=== PATIENT | female | born 1965 | race African-American/Black ===

== ENCOUNTER 2016-07-04 11:03 | Emergency (ER) | payer MEDICAID ==
[~2016-07-04] VITALS: Ht 162.6 cm; Wt 70.0 kg
[~2016-07-04 11:03] MED LIST: ATENOLOL PO; BENA40TA3 PO; BRIM.2 BOTHEYE; DILT120C54 PO; HYDR25TA PO; OMEP20TA80 PO; PRED5DRO7 BOTHEYE; metformin PO
[2016-07-04] MEDS ORDERED: SODIUM CHLORIDE 0.9% 1,000 ML IV ONE (11:37)
[2016-07-04] MEDS ORDERED: ONDANSETRON HCL 4MG/2ML VIAL IV STA (11:37)
[2016-07-04] MEDS ORDERED: MECLIZINE 25MG TABLET PO ONE (11:45)
[2016-07-04 11:54] LABS: BASOPHILS % 0.4 % (0.0-2.0); DIFFERENTIAL COMMENT 0; HEMOGLOBIN. 12.3 g/dL (12.0-16.0); LYMPHOCYTES % 16.6 % (20.0-50.0); MEAN CORPUSCULAR HEMOGLOBIN 26.5 pg (28.0-32.0); MEAN CORPUSCULAR HGB CONC 34.3 g/dL (31.0-37.0); MEAN CORPUSCULAR VOLUME 77.4 fL (81.0-99.0); MEAN PLATELET VOLUME 8.1 fl (7.4-10.4); MONOCYTES % 6.7 % (2.0-8.0); NEUTROPHILS % 75.3 % (40.0-76.0); PLATELET 297 x1000/uL (130-400); RED BLOOD CELL COUNT 4.65 mill/uL (4.2-5.4); RED CELL DISTRIBUTION WIDTH 15.2 % (11.6-14.6); WHITE BLOOD COUNT 7.5 x1000/uL (4.5-11.0)
[2016-07-04 12:02] LABS: INR 1.1; PROTHROMBIN TIME 11.3 sec
[2016-07-04 12:14] LABS: ALANINE AMINOTRANSFERASE 15 IU/L (13-61); ALBUMIN 3.6 g/dL (3.4-5.0); ANION GAP 11; CALCIUM 9.3 mg/dL (8.5-10.1); CARBON DIOXIDE 30 mEq/L (21-32); CHLORIDE 106 mEq/L (98-107); INDEX HEMOLYSI 1 (1-3); INDEX ICTERIC 1 (1-4); INDEX LIPEMIC 1 (1-3); UREA NITROGEN BLOOD 8 mg/dL (7-21); eGFR > 60 mL/min (>60)
[2016-07-04 12:54] LABS: GLUCOSE URINE NEGATIVE (NEGATIVE); KETONES URINE NEGATIVE (NEGATIVE); LEUKOCYTE ESTERASE URINE 2+ (NEGATIVE); NITRITE URINE NEGATIVE (NEGATIVE); OCCULT BLOOD URINE NEGATIVE (NEGATIVE); PH URINE 7.5 (4.5-8.0); PROTEIN URINE NEGATIVE (NEGATIVE); UROBILINOGEN URINE 0.2 E.U./dL (0.2-1.0)
[2016-07-04 13:00] LABS: CLARITY URINE CLEAR (CLEAR); COLOR URINE YELLOW (YELLOW)
[2016-07-04 13:09] LABS: BACTERIA URINE NONE SEEN; RBC URINE 0-2 /hpf (0-2); SQUAMOUS EPITHELIAL CELL URINE FEW /lpf (RARE/1+)
[2016-07-04 16:44] VITALS: BP 107/74
== END 2016-07-04 17:02 | disposition home or self-care (01) ==
LOC: ER 12:35
DX: R42 Dizziness and giddiness (principal); N30.00 Acute cystitis without hematuria; E11.65 Type 2 diabetes mellitus with hyperglycemia; Z79.84 Long term (current) use of oral hypoglycemic drugs
CPT/HCPCS: 36415; 80053; 81001; 85025; 85610; 93005; 96361; 96374; 99285; J2405; J7030; J8597

== ENCOUNTER 2017-05-14 08:32 | Emergency (ER) | payer MEDICAID ==
[~2017-05-14] VITALS: Ht 167.6 cm; Wt 73.0 kg
[~2017-05-14 08:32] MED LIST changes: +OMEP20TA2 PO; -OMEP20TA80 PO
[2017-05-14 10:02] LABS: BASOPHILS % 1.1 % (0.0-2.0); EOSINOPHILS % 1.2 % (0.0-5.0); LYMPHOCYTES % 31.2 % (20.0-50.0); MEAN CORPUSCULAR HEMOGLOBIN 26.6 pg (28.0-32.0); MEAN CORPUSCULAR VOLUME 77.3 fL (81.0-99.0); MEAN PLATELET VOLUME 8.6 fl (7.4-10.4); MONOCYTES % 8.7 % (2.0-8.0); NEUTROPHILS % 57.8 % (40.0-76.0); PLATELET 324 x1000/uL (130-400); RED BLOOD CELL COUNT 4.53 mill/uL (4.2-5.4)
[2017-05-14 10:07] LABS: PROTHROMBIN TIME 10.5 sec (9.4-11.6)
[2017-05-14 11:19] LABS: CHLORIDE 103 mEq/L (98-107)
[2017-05-14 11:30] VITALS: BP 126/80
== END 2017-05-14 12:06 | disposition home or self-care (01) ==
LOC: ER 08:32
DX: R42 Dizziness and giddiness (principal); I10 Essential (primary) hypertension; R00.0 Tachycardia, unspecified; K21.9 Gastro-esophageal reflux disease without esophagitis; I48.91 Unspecified atrial fibrillation; Z79.01 Long term (current) use of anticoagulants; E11.65 Type 2 diabetes mellitus with hyperglycemia; Z79.84 Long term (current) use of oral hypoglycemic drugs; Z98.51 Tubal ligation status
CPT/HCPCS: 36415; 71045; 80053; 84484; 85025; 85610; 93005; 99285; Z7610

== ENCOUNTER 2018-05-13 11:29 | Emergency (ER) | payer MEDICAID, OTHER ==
[~2018-05-13] VITALS: Ht 162.6 cm; Wt 68.0 kg
[~2018-05-13 11:29] MED LIST changes: -BENA40TA3 PO; +BENA40TA9 PO
[2018-05-13 23:18] LABS: CLARITY URINE CLEAR (CLEAR); COLOR URINE YELLOW (YELLOW); KETONES URINE NEGATIVE (NEGATIVE); LEUKOCYTE ESTERASE URINE NEGATIVE (NEGATIVE); NITRITE URINE NEGATIVE (NEGATIVE); OCCULT BLOOD URINE 2+ (NEGATIVE); PH URINE 7.5 (4.5-8.0); PROTEIN URINE NEGATIVE (NEGATIVE); SPECIFIC GRAVITY URINE 1.004 (1.005-1.030); UROBILINOGEN URINE 0.2 E.U./dL (0.2-1.0)
[2018-05-13 23:26] VITALS: BP 146/85
[2018-05-13 23:35] LABS: BASOPHILS % 0.9 % (0.0-2.0); EOSINOPHILS % 1.2 % (0.0-5.0); HEMATOCRIT. 38.7 % (36.0-48.0); HEMOGLOBIN. 13.4 g/dL (12.0-16.0); LYMPHOCYTES % 34.9 % (20.0-50.0); MEAN CORPUSCULAR HEMOGLOBIN 27.2 pg (28.0-32.0); MEAN CORPUSCULAR VOLUME 78.7 fL (81.0-99.0); MEAN PLATELET VOLUME 8.4 fl (7.4-10.4); MONOCYTES % 9.9 % (2.0-8.0); NEUTROPHILS % 53.1 % (40.0-76.0); PLATELET 289 x1000/uL (130-400); RED BLOOD CELL COUNT 4.92 mill/uL (4.2-5.4); RED CELL DISTRIBUTION WIDTH 14.7 % (11.6-14.6)
[2018-05-13 23:37] LABS: CHLORIDE 103 mEq/L (98-107)
[2018-05-13 23:38] LABS: PROTHROMBIN TIME 10.3 sec (9.1-11.1)
== END 2018-05-14 00:15 | disposition home or self-care (01) ==
LOC: ER 12:35
DX: D25.9 Leiomyoma of uterus, unspecified (principal); N39.0 Urinary tract infection, site not specified; E11.9 Type 2 diabetes mellitus without complications; I10 Essential (primary) hypertension; K21.9 Gastro-esophageal reflux disease without esophagitis; Z98.51 Tubal ligation status; Z79.899 Other long term (current) drug therapy
CPT/HCPCS: 36415; 74176; 84484; 99284

== ENCOUNTER 2018-05-19 07:37 | Emergency (ER) | payer OTHER ==
[~2018-05-19] VITALS: Ht 157.5 cm; Wt 73.0 kg
[2018-05-19] MEDS ORDERED: ACETAMINOPHEN 325MG TABLET PO STA (08:01)
[2018-05-19] MEDS ORDERED: SODIUM CHLORIDE 0.9% 1,000 ML IV ONE (08:01)
[2018-05-19 08:28] LABS: BASOPHILS % 0.9 % (0.0-2.0); EOSINOPHILS % 1.1 % (0.0-5.0); HEMATOCRIT. 35.5 % (36.0-48.0); HEMOGLOBIN. 12.4 g/dL (12.0-16.0); LYMPHOCYTES % 38.3 % (20.0-50.0); MEAN CORPUSCULAR HEMOGLOBIN 27.6 pg (28.0-32.0); MEAN CORPUSCULAR VOLUME 78.9 fL (81.0-99.0); MEAN PLATELET VOLUME 8.7 fl (7.4-10.4); MONOCYTES % 8.8 % (2.0-8.0); NEUTROPHILS % 50.9 % (40.0-76.0); PLATELET 280 x1000/uL (130-400); RED CELL DISTRIBUTION WIDTH 14.8 % (11.6-14.6)
[2018-05-19 08:34] LABS: CHLORIDE 102 mEq/L (98-107)
[2018-05-19 08:36] LABS: PROTHROMBIN TIME 10.5 sec (9.1-11.1)
[2018-05-19 09:19] LABS: CLARITY URINE CLEAR (CLEAR); COLOR URINE YELLOW (YELLOW); KETONES URINE NEGATIVE (NEGATIVE); LEUKOCYTE ESTERASE URINE NEGATIVE (NEGATIVE); NITRITE URINE NEGATIVE (NEGATIVE); OCCULT BLOOD URINE TRACE (NEGATIVE); PROTEIN URINE NEGATIVE (NEGATIVE); SPECIFIC GRAVITY URINE 1.004 (1.005-1.030); UROBILINOGEN URINE 0.2 E.U./dL (0.2-1.0)
[2018-05-19] MEDS ORDERED: POTASSIUM CHLORIDE 20MEQ TABLET SR PO ONE (11:30)
[2018-05-19 12:03] VITALS: BP 113/78
== END 2018-05-19 12:16 | disposition home or self-care (01) ==
LOC: ER 08:28
DX: R25.1 Tremor, unspecified (principal); E11.9 Type 2 diabetes mellitus without complications; K21.9 Gastro-esophageal reflux disease without esophagitis; I10 Essential (primary) hypertension; Z98.51 Tubal ligation status; Z79.899 Other long term (current) drug therapy
CPT/HCPCS: 36415; 71045; 80053; 81003; 82962; 83605; 84145; 85025; 85610; 87040; 87086; 93005; 99284; J7030

== ENCOUNTER 2018-05-20 07:45 | Emergency (ER) | payer OTHER ==
[~2018-05-20] VITALS: Ht 160 cm; Wt 73.0 kg
[2018-05-20 08:01] VITALS: BP 140/84
== END 2018-05-20 12:02 | disposition left against medical advice (07) ==
LOC: ER 07:45
DX: Z53.21 Procedure and treatment not carried out due to patient leaving prior to being seen by health care provider (principal)

== ENCOUNTER 2018-05-27 07:22 | Inpatient (IN) | payer OTHER ==
[~2018-05-27] VITALS: Ht 157.5 cm; Wt 79.8 kg
[2018-05-27] MEDS ORDERED: ONDANSETRON HCL 4MG/2ML INJ IV STA (14:52)
[2018-05-27] MEDS ORDERED: KETOROLAC 30MG/ML VIAL IV STA (14:52)
[2018-05-27] MEDS ORDERED: DICYCLOMINE 10 MG/5 ML ORAL SYR PO ONE (15:00)
[2018-05-27] MEDS ORDERED: MAGNESIUM/ALUMINUM HYDROXIDE/SIMETHICONE 30ML UDC PO ONE (15:00)
[2018-05-27] MEDS ORDERED: FAMOTIDINE 20MG/2ML VIAL IV ONE (15:00)
[2018-05-27] MEDS ORDERED: VISCOUS LIDOCAINE 2% 15 ML UDC PO ONE (15:00)
[2018-05-27 15:27] LABS: BASOPHILS % 1.1 % (0.0-2.0); EOSINOPHILS % 0.7 % (0.0-5.0); HEMATOCRIT. 40.3 % (36.0-48.0); HEMOGLOBIN. 13.8 g/dL (12.0-16.0); LYMPHOCYTES % 34.7 % (20.0-50.0); MEAN CORPUSCULAR HEMOGLOBIN 27.3 pg (28.0-32.0); MEAN CORPUSCULAR VOLUME 79.7 fL (81.0-99.0); MEAN PLATELET VOLUME 8.5 fl (7.4-10.4); MONOCYTES % 11.5 % (2.0-8.0); PLATELET 343 x1000/uL (130-400); RED BLOOD CELL COUNT 5.05 mill/uL (4.2-5.4)
[2018-05-27 15:30] LABS: CHLORIDE 103 mEq/L (98-107)
[2018-05-27] MEDS ORDERED: DOCUSATE SODIUM 100MG CAPSULE PO PRN (16:45)
[2018-05-27] MEDS ORDERED: IPRATROPIUM/ALBUTEROL 0.5-3(2.5)MG/3ML NEB INH PRN (16:45)
[2018-05-27] MEDS ORDERED: ACETAMINOPHEN 325MG TABLET PO PRN (16:45)
[2018-05-27] MEDS ORDERED: GUAIFENESIN 200MG/10ML SUGAR FREE UDC PO PRN (16:45)
[2018-05-27] MEDS ORDERED: HYDROCODONE/ACETAMINOPHEN 5/325MG TABLET PO PRN (16:45)
[2018-05-27] MEDS ORDERED: ENOXAPARIN 40MG/0.4ML SYR SUBCUT SCH (16:45)
[2018-05-27] MEDS ORDERED: ONDANSETRON HCL 4MG/2ML INJ IV PRN (16:45)
[2018-05-27] MEDS ORDERED: CLONIDINE 0.1MG TABLET PO PRN (16:45)
[2018-05-27] MEDS ORDERED: MAGNESIUM/ALUMINUM HYDROXIDE/SIMETHICONE 30ML UDC PO PRN (16:45)
[2018-05-27] MEDS ORDERED: DIPHENHYDRAMINE 50MG/ML VIAL IV PRN (16:45)
[2018-05-27 17:23] LABS: PHOSPHORUS 4.1 mg/dL (2.5-4.9)
[2018-05-27 17:26] LABS: CREATINE KINASE 115 IU/L (26-192)
[2018-05-27 17:27] LABS: CREATINE KINASE MB FRACTION < 1.0 ng/mL (0.5-3.6)
[2018-05-28 04:35] LABS: BASOPHILS % 1.2 % (0.0-2.0); EOSINOPHILS % 1.4 % (0.0-5.0); HEMATOCRIT. 38.2 % (36.0-48.0); HEMOGLOBIN. 13.1 g/dL (12.0-16.0); LYMPHOCYTES % 42.1 % (20.0-50.0); MEAN CORPUSCULAR HEMOGLOBIN 27.2 pg (28.0-32.0); MEAN CORPUSCULAR VOLUME 79.1 fL (81.0-99.0); MEAN PLATELET VOLUME 8.4 fl (7.4-10.4); MONOCYTES % 12.2 % (2.0-8.0); NEUTROPHILS % 43.1 % (40.0-76.0); PLATELET 320 x1000/uL (130-400); RED BLOOD CELL COUNT 4.83 mill/uL (4.2-5.4); RED CELL DISTRIBUTION WIDTH 14.6 % (11.6-14.6)
[2018-05-28 04:40] LABS: CHLORIDE 102 mEq/L (98-107)
[2018-05-28 04:46] LABS: LDL CHOLESTEROL 53 mg/dL (5-100)
[2018-05-28 04:47] LABS: CREATINE KINASE 79 IU/L (26-192); HDL CHOLESTEROL 62 mg/dL (40-59)
[2018-05-28 04:50] LABS: CREATINE KINASE MB FRACTION < 1.0 ng/mL (0.5-3.6)
[2018-05-28 08:52] VITALS: BP 110/61
[2018-05-28] MEDS ORDERED: OMEP40CA34 MT (09:24)
[2018-05-28] MEDS ORDERED: FERR325T6 MT (09:24)
[2018-05-28] MEDS ORDERED: ERGO2000 PO (09:26)
[2018-05-28] MEDS ORDERED: METF-414 MT (09:30)
[2018-05-28 09:32] VITALS: BP 110/61
[2018-05-28] MEDS ORDERED: DEXTROSE 50% WATER 50ML SYRINGE IV PRN ×2 (10:00)
[2018-05-28] MEDS ORDERED: PNEUMOCOCCAL 23-VAL P-SAC VAC 0.5 ML IM ONE (11:00)
[2018-05-28] MEDS ORDERED: INFLUENZA VIRUS VACCINE(AFLURIA) 0.5ML SYR IM ONE (11:00)
[2018-05-28 12:00] VITALS: BP 113/85
[2018-05-28] MEDS ORDERED: BLOOD SUGAR DIAGNOSTIC STRIP TEST SCH (12:10)
[2018-05-28] MEDS: INSULIN LISPRO 100 UNITS/ML SUBCUT SCH ×3 (12:29→21:02)
[2018-05-28] MEDS: BLOOD SUGAR DIAGNOSTIC STRIP TEST SCH ×3 (12:29→20:28)
[2018-05-28] MEDS: ENOXAPARIN 40MG/0.4ML SYR SUBCUT SCH (12:33)
[2018-05-28] MEDS ORDERED: INSULIN LISPRO 100 UNITS/ML SUBCUT SCH (12:40)
[2018-05-28 16:00] VITALS: BP 126/84
[2018-05-28 20:00] VITALS: BP 123/79
[2018-05-29] VITALS: BP 129/88
[2018-05-29 04:00] VITALS: BP 139/81
[2018-05-29] MEDS: BLOOD SUGAR DIAGNOSTIC STRIP TEST SCH ×4 (05:27→20:26)
[2018-05-29] MEDS: INSULIN LISPRO 100 UNITS/ML SUBCUT SCH ×4 (05:54→20:26)
[2018-05-29 07:14] LABS: CHLORIDE 104 mEq/L (98-107)
[2018-05-29 07:29] LABS: BASOPHILS % 0.4 % (0.0-2.0); EOSINOPHILS % 0.9 % (0.0-5.0); HEMOGLOBIN. 13.9 g/dL (12.0-16.0); LYMPHOCYTES % 29.5 % (20.0-50.0); MEAN CORPUSCULAR VOLUME 81.3 fL (81.0-99.0); MEAN PLATELET VOLUME 8.8 fl (7.4-10.4); MONOCYTES % 9.9 % (2.0-8.0); NEUTROPHILS % 59.3 % (40.0-76.0); PLATELET 307 x1000/uL (130-400); RED BLOOD CELL COUNT 5.16 mill/uL (4.2-5.4); RED CELL DISTRIBUTION WIDTH 14.9 % (11.6-14.6)
[2018-05-29] MEDS: ENOXAPARIN 40MG/0.4ML SYR SUBCUT SCH (08:01)
[2018-05-29 08:27] VITALS: BP 123/80
[2018-05-29 12:00] VITALS: BP_SYST 110; BP_SYST 124; BP_DIAS 57; BP_DIAS 92
[2018-05-29] MEDS ORDERED: REGADENOSON 0.4 MG/5 ML IV NR (12:15)
[2018-05-29 16:08] VITALS: BP 125/86
[2018-05-29 20:00] VITALS: BP 130/89
[2018-05-30] VITALS: BP 139/90
[2018-05-30 04:00] VITALS: BP 144/84
[2018-05-30] MEDS: BLOOD SUGAR DIAGNOSTIC STRIP TEST SCH ×2 (06:18→13:01)
[2018-05-30] MEDS: INSULIN LISPRO 100 UNITS/ML SUBCUT SCH ×2 (06:18→12:40)
[2018-05-30] MEDS ORDERED: OMEPRAZOLE 20MG CAPSULE EXTENDED RELEASE PO SCH (07:10)
[2018-05-30 07:50] VITALS: BP 142/85
[2018-05-30] MEDS: ENOXAPARIN 40MG/0.4ML SYR SUBCUT SCH (08:08)
[2018-05-30 09:02] LABS: BASOPHILS % 0.2 % (0.0-2.0); EOSINOPHILS % 0.8 % (0.0-5.0); HEMATOCRIT. 38.9 % (36.0-48.0); HEMOGLOBIN. 13.4 g/dL (12.0-16.0); LYMPHOCYTES % 20.9 % (20.0-50.0); MEAN CORPUSCULAR HEMOGLOBIN 27.4 pg (28.0-32.0); MEAN CORPUSCULAR VOLUME 79.4 fL (81.0-99.0); MEAN PLATELET VOLUME 8.8 fl (7.4-10.4); MONOCYTES % 10.8 % (2.0-8.0); NEUTROPHILS % 67.3 % (40.0-76.0); PLATELET 287 x1000/uL (130-400); RED CELL DISTRIBUTION WIDTH 14.7 % (11.6-14.6)
[2018-05-30 09:27] LABS: CHLORIDE 104 mEq/L (98-107)
[2018-05-30 09:38] LABS: CREATINE KINASE MB FRACTION < 1.0 ng/mL (0.5-3.6)
[2018-05-30 09:39] LABS: CREATINE KINASE 56 IU/L (26-192); LDL CHOLESTEROL 57 mg/dL (5-100)
[2018-05-30 09:41] LABS: HDL CHOLESTEROL 62 mg/dL (40-59)
[2018-05-30] MEDS ORDERED: REGADENOSON 0.4 MG/5 ML IV ONE (10:42)
[2018-05-30 12:00] VITALS: BP 130/82
[2018-05-30 15:09] VITALS: BP 130/82
== END 2018-05-30 15:59 | disposition home or self-care (01) | DRG 392 ==
LOC: ER 07:22 → 8WST 16:13 → EDBEDREQ 16:15 → ENRESERV 05-28 07:54
PROVIDERS: ADMIT Internal Medicine; ATTEND Internal Medicine
DX: K21.9 Gastro-esophageal reflux disease without esophagitis (principal); I24.9 Acute ischemic heart disease, unspecified; E11.65 Type 2 diabetes mellitus with hyperglycemia; I10 Essential (primary) hypertension; Z98.51 Tubal ligation status; E66.9 Obesity, unspecified; Z68.32 Body mass index [BMI] 32.0-32.9, adult
CPT/HCPCS: 36415; 71045; 78452; 80048; 80061; 82550; 82553; 82962; 83036; 83735; 84100; 84443; 84484; 85379; 90686; 90732; 93005; 93017; 93306; 93970; 96374; 96375; 97162; 97165; 99285; A9500; J1650; J1815; J1885; J2405; J2785; J3490

== ENCOUNTER 2020-01-28 23:25 | Emergency (ER) | payer OTHER ==
[~2020-01-28] VITALS: Ht 157.5 cm; Wt 75.0 kg
[~2020-01-28 23:25] MED LIST changes: -ATENOLOL PO; +ERGO2000 PO; +FERR325T6 MT; -HYDR25TA PO; +METF-414 MT; -OMEP20TA2 PO; +OMEP40CA12 MT; -PRED5DRO7 BOTHEYE; -metformin PO
[2020-01-29] MEDS ORDERED: MAGNESIUM/ALUMINUM HYDROXIDE/SIMETHICONE 30ML UDC PO STA (00:48)
[2020-01-29] MEDS ORDERED: METOCLOPRAMIDE HCL 10MG/2ML VIAL IV STA (00:48)
[2020-01-29 01:21] LABS: EOSINOPHILS % 0.8 % (0.0-5.0); HEMATOCRIT. 37.9 % (36.0-48.0); HEMOGLOBIN. 13.1 g/dL (12.0-16.0); LYMPHOCYTES % 28.2 % (20.0-50.0); MEAN CORPUSCULAR HEMOGLOBIN 26.8 pg (28.0-32.0); MEAN CORPUSCULAR VOLUME 77.6 fL (81.0-99.0); MEAN PLATELET VOLUME 8.5 fl (7.4-10.4); PLATELET 283 x1000/uL (130-400); RED BLOOD CELL COUNT 4.89 mill/uL (4.2-5.4); RED CELL DISTRIBUTION WIDTH 14.7 % (11.6-14.6)
[2020-01-29 01:27] LABS: CHLORIDE 105 mEq/L (98-107)
[2020-01-29 04:00] VITALS: BP 125/87
== END 2020-01-29 04:44 | disposition home or self-care (01) ==
LOC: ER 23:25
DX: I10 Essential (primary) hypertension (principal); R42 Dizziness and giddiness; F41.9 Anxiety disorder, unspecified; E11.9 Type 2 diabetes mellitus without complications; K21.9 Gastro-esophageal reflux disease without esophagitis; Z79.84 Long term (current) use of oral hypoglycemic drugs; Z98.51 Tubal ligation status
CPT/HCPCS: 36415; 70450; 71045; 80053; 83690; 85025; 93005; 96374; 99285; J2765

== ENCOUNTER 2020-02-08 13:26 | Emergency (ER) | payer OTHER ==
[~2020-02-08] VITALS: Ht 157.5 cm; Wt 90.0 kg
[2020-02-08] MEDS ORDERED: FAMOTIDINE 20MG/2ML VIAL IV STA (15:59)
[2020-02-08] MEDS ORDERED: ONDANSETRON HCL 4MG/2ML INJ IV STA (15:59)
[2020-02-08] MEDS ORDERED: MAGNESIUM/ALUMINUM HYDROXIDE/SIMETHICONE 30ML UDC PO STA (15:59)
[2020-02-08 17:26] LABS: BASOPHILS % 0.3 % (0.0-2.0); EOSINOPHILS % 0.2 % (0.0-5.0); HEMATOCRIT. 35.4 % (36.0-48.0); HEMOGLOBIN. 12.3 g/dL (12.0-16.0); LYMPHOCYTES % 26.2 % (20.0-50.0); MEAN CORPUSCULAR HEMOGLOBIN 26.7 pg (28.0-32.0); MEAN CORPUSCULAR VOLUME 76.8 fL (81.0-99.0); MEAN PLATELET VOLUME 8.7 fl (7.4-10.4); MONOCYTES % 5.4 % (2.0-8.0); NEUTROPHILS % 67.9 % (40.0-76.0); PLATELET 272 x1000/uL (130-400); RED BLOOD CELL COUNT 4.61 mill/uL (4.2-5.4); RED CELL DISTRIBUTION WIDTH 14.7 % (11.6-14.6)
[2020-02-08 17:30] LABS: CHLORIDE 105 mEq/L (98-107)
[2020-02-08 18:45] VITALS: BP 150/84
== END 2020-02-08 18:48 | disposition home or self-care (01) ==
LOC: ER 13:26
DX: K21.9 Gastro-esophageal reflux disease without esophagitis (principal); I10 Essential (primary) hypertension; E11.9 Type 2 diabetes mellitus without complications; Z98.51 Tubal ligation status; Z79.899 Other long term (current) drug therapy
CPT/HCPCS: 36415; 71045; 76705; 80053; 83690; 85025; 85610; 93005; 96374; 96375; 99285; J2405; J3490

== ENCOUNTER 2021-04-05 18:18 | Emergency (ER) | payer MEDICAID, OTHER ==
[~2021-04-05] VITALS: Ht 157.5 cm; Wt 78.0 kg
[~2021-04-05 18:18] MED LIST changes: -OMEP40CA12 MT; +OMEP40CA20 MT
[2021-04-05] MEDS ORDERED: MAGNESIUM/ALUMINUM HYDROXIDE/SIMETHICONE 30ML UDC PO ONE (19:15)
[2021-04-05] MEDS ORDERED: ONDANSETRON 4MG ODT PO ONE (19:15)
[2021-04-05] MEDS ORDERED: FAMOTIDINE 20MG TABLET PO ONE (19:15)
[2021-04-05 20:55] VITALS: BP 145/87
[2021-04-05] MEDS ORDERED: FAMO-135 PO (20:55)
== END 2021-04-05 21:00 | disposition home or self-care (01) ==
LOC: ER 18:18
DX: T21.01XA Burn of unspecified degree of chest wall, initial encounter (principal); T79.9XXA Unspecified early complication of trauma, initial encounter; E11.9 Type 2 diabetes mellitus without complications; I10 Essential (primary) hypertension; K21.9 Gastro-esophageal reflux disease without esophagitis; Z98.890 Other specified postprocedural states; Z98.51 Tubal ligation status; X08.8XXA Exposure to other specified smoke, fire and flames, initial encounter; Y93.89 Activity, other specified; Y92.89 Other specified places as the place of occurrence of the external cause; Y99.8 Other external cause status
CPT/HCPCS: 93005; 99284; Q0162

== ENCOUNTER 2021-05-27 17:45 | Emergency (ER) | payer OTHER ==
[~2021-05-27] VITALS: Ht 162.6 cm; Wt 65.0 kg
[~2021-05-27 17:45] MED LIST changes: +FAMO-135 PO; +MAG-55 MT
[2021-05-27 17:53] VITALS: BP 146/83
[2021-05-27] MEDS ORDERED: SUCR1TAB30 MT (18:35)
[2021-05-27] MEDS ORDERED: DICY10CA88 MT (18:35)
[2021-05-27] MEDS ORDERED: PROT40 MT (18:35)
[2021-05-27] MEDS ORDERED: MAGNESIUM/ALUMINUM HYDROXIDE/SIMETHICONE 30ML UDC PO ONE (18:45)
[2021-05-27] MEDS ORDERED: VISCOUS LIDOCAINE 2% 15 ML UDC MM ONE (18:45)
== END 2021-05-27 19:00 | disposition home or self-care (01) ==
LOC: ER 17:45
DX: R10.13 Epigastric pain (principal); I10 Essential (primary) hypertension; E11.9 Type 2 diabetes mellitus without complications; K21.9 Gastro-esophageal reflux disease without esophagitis; Z98.51 Tubal ligation status; Z79.899 Other long term (current) drug therapy
CPT/HCPCS: 82962; 93005; 99283

== ENCOUNTER 2021-05-30 23:04 | Emergency (ER) | payer OTHER ==
[~2021-05-30] VITALS: Ht 157.5 cm; Wt 64.0 kg
[~2021-05-30 23:04] MED LIST changes: +DICY10CA88 MT; +PROT40 MT; +SUCR1TAB30 MT
[2021-05-30 23:32] VITALS: BP 137/81
[2021-05-31 00:44] LABS: BASOPHILS % 0.3 % (0.0-2.0); EOSINOPHILS % 0.5 % (0.0-5.0); HEMATOCRIT. 35.5 % (36.0-48.0); HEMOGLOBIN. 12.6 g/dL (12.0-16.0); LYMPHOCYTES % 18.8 % (20.0-50.0); MEAN CORPUSCULAR HEMOGLOBIN 27.6 pg (28.0-32.0); MEAN CORPUSCULAR VOLUME 77.4 fL (81.0-99.0); MEAN PLATELET VOLUME 8.5 fl (7.4-10.4); MONOCYTES % 7.3 % (2.0-8.0); NEUTROPHILS % 73.1 % (40.0-76.0); PLATELET 282 x1000/uL (130-400); RED BLOOD CELL COUNT 4.59 mill/uL (4.2-5.4); RED CELL DISTRIBUTION WIDTH 14.7 % (11.6-14.6)
[2021-05-31 00:46] LABS: CHLORIDE 106 mEq/L (98-107)
[2021-05-31 00:51] LABS: ETHANOL BLOOD < 10 mg/dL
[2021-05-31 01:47] LABS: CLARITY URINE CLEAR (CLEAR); COLOR URINE YELLOW (YELLOW); KETONES URINE NEGATIVE (NEGATIVE); LEUKOCYTE ESTERASE URINE TRACE (NEGATIVE); NITRITE URINE NEGATIVE (NEGATIVE); OCCULT BLOOD URINE NEGATIVE (NEGATIVE); PROTEIN URINE NEGATIVE (NEGATIVE); SPECIFIC GRAVITY URINE 1.006 (1.005-1.030); UROBILINOGEN URINE 0.2 E.U./dL (0.2-1.0)
[2021-05-31] MEDS ORDERED: FAMO-135 MT (01:57)
[2021-05-31 02:00] LABS: *AMPHETAMINES SCREEN URINE NEGATIVE (NEGATIVE); *BARBITURATES SCREEN URINE NEGATIVE (NEGATIVE); *BENZODIAZEPINES SCREEN URINE NEGATIVE (NEGATIVE); *COCAINE SCREEN URINE NEGATIVE (NEGATIVE); METHADONE URINE SCREEN NEGATIVE (NEGATIVE); OPIATES URINE SCREEN NEGATIVE (NEGATIVE)
[2021-05-31] MEDS ORDERED: VISCOUS LIDOCAINE 2% 15 ML UDC PO ONE (02:00)
[2021-05-31] MEDS ORDERED: FAMOTIDINE 20MG TABLET PO ONE (02:00)
[2021-05-31] MEDS ORDERED: MAGNESIUM/ALUMINUM HYDROXIDE/SIMETHICONE 30ML UDC PO ONE (02:00)
[2021-05-31 02:01] LABS: CANNABINOID URINE SCREEN NEGATIVE (NEGATIVE); PHENCYCLIDINE URINE SCREEN NEGATIVE (NEGATIVE)
== END 2021-05-31 02:07 | disposition home or self-care (01) ==
LOC: ER 23:04
DX: K21.9 Gastro-esophageal reflux disease without esophagitis (principal); K29.70 Gastritis, unspecified, without bleeding; E11.9 Type 2 diabetes mellitus without complications; I10 Essential (primary) hypertension; Z98.51 Tubal ligation status; Z79.899 Other long term (current) drug therapy
CPT/HCPCS: 36415; 80053; 80305; 80320; 81003; 84484; 85025; 93005; 99284; G0480

== ENCOUNTER 2021-06-02 12:34 | Inpatient (IN) | payer OTHER ==
[~2021-06-02] VITALS: Ht 160 cm; Wt 62.9 kg
[~2021-06-02 12:34] MED LIST changes: +FAMO-135 MT
[2021-06-02] MEDS ORDERED: FAMOTIDINE 20MG/2ML VIAL IV ONE (13:00)
[2021-06-02] MEDS ORDERED: ONDANSETRON HCL 4MG/2ML INJ IV ONE ×2 (13:00→15:15)
[2021-06-02] MEDS ORDERED: SODIUM CHLORIDE 0.9% 1,000 ML IV ONE (14:00)
[2021-06-02 14:26] LABS: BASOPHILS % 0.5 % (0.0-2.0); EOSINOPHILS % 0.5 % (0.0-5.0); HEMATOCRIT. 38.6 % (36.0-48.0); HEMOGLOBIN. 13.5 g/dL (12.0-16.0); MEAN CORPUSCULAR VOLUME 77.3 fL (81.0-99.0); MEAN PLATELET VOLUME 8.6 fl (7.4-10.4); MONOCYTES % 8.3 % (2.0-8.0); NEUTROPHILS % 72.7 % (40.0-76.0); PLATELET 307 x1000/uL (130-400); RED BLOOD CELL COUNT 4.99 mill/uL (4.2-5.4); RED CELL DISTRIBUTION WIDTH 14.9 % (11.6-14.6)
[2021-06-02 14:33] LABS: CHLORIDE 103 mEq/L (98-107)
[2021-06-02 15:04] LABS: CLARITY URINE CLEAR (CLEAR); COLOR URINE YELLOW (YELLOW); KETONES URINE NEGATIVE (NEGATIVE); LEUKOCYTE ESTERASE URINE TRACE (NEGATIVE); NITRITE URINE NEGATIVE (NEGATIVE); OCCULT BLOOD URINE NEGATIVE (NEGATIVE); PROTEIN URINE NEGATIVE (NEGATIVE); SPECIFIC GRAVITY URINE 1.004 (1.005-1.030); UROBILINOGEN URINE 0.2 E.U./dL (0.2-1.0)
[2021-06-02] MEDS ORDERED: ASPIRIN 81MG TABLET PO ONE (16:00)
[2021-06-02] MEDS ORDERED: CEFTRIAXONE 1 G PREMIX 50 ML IV ONE (16:00)
[2021-06-02] MEDS ORDERED: DOCUSATE SODIUM 100MG CAPSULE PO PRN (17:45)
[2021-06-02] MEDS ORDERED: IPRATROPIUM/ALBUTEROL 0.5-3(2.5)MG/3ML NEB HHN PRN (17:45)
[2021-06-02] MEDS ORDERED: ONDANSETRON HCL 4MG/2ML INJ IV PRN (17:45)
[2021-06-02] MEDS ORDERED: LORAZEPAM 0.5MG TABLET PO PRN (17:45)
[2021-06-02] MEDS ORDERED: ACETAMINOPHEN 325MG TABLET PO PRN ×2 (17:45)
[2021-06-02] MEDS ORDERED: CLONIDINE 0.1MG TABLET PO PRN (17:45)
[2021-06-02] MEDS ORDERED: HYDROCODONE/ACETAMINOPHEN 5/325MG TABLET PO PRN (17:45)
[2021-06-02] MEDS: PANTOPRAZOLE SODIUM 40 MG/VIAL IV SCH (19:11)
[2021-06-03] VITALS: BP 140/93
[2021-06-03 08:00] VITALS: BP 107/68
[2021-06-03 08:01] LABS: BASOPHILS % 0.4 % (0.0-2.0); EOSINOPHILS % 0.7 % (0.0-5.0); HEMATOCRIT. 39.2 % (36.0-48.0); HEMOGLOBIN. 13.7 g/dL (12.0-16.0); MEAN CORPUSCULAR HEMOGLOBIN 27.5 pg (28.0-32.0); MEAN CORPUSCULAR VOLUME 78.9 fL (81.0-99.0); MEAN PLATELET VOLUME 8.7 fl (7.4-10.4); MONOCYTES % 11.2 % (2.0-8.0); NEUTROPHILS % 59.7 % (40.0-76.0); PLATELET 260 x1000/uL (130-400); RED BLOOD CELL COUNT 4.97 mill/uL (4.2-5.4); RED CELL DISTRIBUTION WIDTH 14.7 % (11.6-14.6)
[2021-06-03 08:22] LABS: CHLORIDE 107 mEq/L (98-107)
[2021-06-03] MEDS: PANTOPRAZOLE SODIUM 40 MG/VIAL IV SCH (08:54)
[2021-06-03] MEDS ORDERED: NALOXONE HCL 0.4MG/ML VIAL IV PRN (10:30)
[2021-06-03 12:00] VITALS: BP 127/78
[2021-06-03] MEDS ORDERED: MAGNESIUM/ALUMINUM HYDROXIDE/SIMETHICONE 30ML UDC PO PRN (14:15)
[2021-06-03 14:30] LABS: LDL CHOLESTEROL 45 mg/dL (5-100)
[2021-06-03 14:32] LABS: HDL CHOLESTEROL 63 mg/dL (40-59)
[2021-06-03 16:00] VITALS: BP 126/77
[2021-06-03 16:51] LABS: TOTAL IRON BINDING CAPACITY 346 ug/dL (250-450)
[2021-06-03 17:11] LABS: FOLIC ACID (FOLATE) SERUM >20 ng/mL ng/mL (>5.38)
[2021-06-03 17:13] LABS: FERRITIN 36 ng/mL (10-291)
[2021-06-03] MEDS: SODIUM CHLORIDE 0.9% 1,000 ML IV SCH (17:13)
[2021-06-03] MEDS: SIMETHICONE 80MG TABLET CHEW PO SCH ×2 (17:14→21:57)
[2021-06-03] MEDS: METOCLOPRAMIDE HCL 10MG/2ML VIAL IV SCH (17:14)
[2021-06-03] MEDS: BRIMONIDINE 0.2% OPHTH DROPS 5ML BOTHEYE SCH ×2 (17:14→17:15)
[2021-06-03] MEDS: OMEPRAZOLE 20MG CAPSULE EXTENDED RELEASE PO SCH (17:14)
[2021-06-03] MEDS: SUCRALFATE 1 G/10 ML UDC PO SCH ×2 (17:14→21:57)
[2021-06-03 17:21] LABS: VITAMIN B12 SERUM 511 pg/mL (211-911)
[2021-06-03 20:00] VITALS: BP 117/69
[2021-06-04] VITALS: BP 105/59
[2021-06-04] MEDS: METOCLOPRAMIDE HCL 10MG/2ML VIAL IV SCH ×3 (01:19→12:57)
[2021-06-04] MEDS: SODIUM CHLORIDE 0.9% 1,000 ML IV SCH ×2 (03:10→08:45)
[2021-06-04 04:00] VITALS: BP 112/57
[2021-06-04] MEDS: OMEPRAZOLE 20MG CAPSULE EXTENDED RELEASE PO SCH (06:59)
[2021-06-04] MEDS: SUCRALFATE 1 G/10 ML UDC PO SCH ×2 (06:59→12:57)
[2021-06-04 08:00] VITALS: BP 129/73
[2021-06-04 08:00] LABS: BASOPHILS % 0.4 % (0.0-2.0); EOSINOPHILS % 0.8 % (0.0-5.0); HEMATOCRIT. 34.7 % (36.0-48.0); LYMPHOCYTES % 23.9 % (20.0-50.0); MEAN CORPUSCULAR VOLUME 77.9 fL (81.0-99.0); NEUTROPHILS % 65.9 % (40.0-76.0); PLATELET 254 x1000/uL (130-400); RED BLOOD CELL COUNT 4.46 mill/uL (4.2-5.4); RED CELL DISTRIBUTION WIDTH 14.8 % (11.6-14.6)
[2021-06-04 08:14] LABS: CHLORIDE 109 mEq/L (98-107)
[2021-06-04] MEDS: SIMETHICONE 80MG TABLET CHEW PO SCH ×2 (08:44→12:57)
[2021-06-04] MEDS: BRIMONIDINE 0.2% OPHTH DROPS 5ML BOTHEYE SCH (08:45)
[2021-06-04 12:00] VITALS: BP 138/76
[2021-06-04] MEDS ORDERED: OMEP40CA20 MT (13:34)
[2021-06-04] MEDS ORDERED: POTASSIUM CHLORIDE 20MEQ TABLET SR PO NR (13:45)
[2021-06-04 15:16] VITALS: BP 138/76
[2021-06-04 16:00] VITALS: BP 140/84
== END 2021-06-04 16:35 | disposition home or self-care (01) | DRG 392 ==
LOC: ER 12:34 → 8WST 16:54 → ENRESERV 22:10
PROVIDERS: ADMIT Internal Medicine; ATTEND Internal Medicine
DX: K29.70 Gastritis, unspecified, without bleeding (principal); K20.90 Esophagitis, unspecified without bleeding; E11.9 Type 2 diabetes mellitus without complications; I10 Essential (primary) hypertension; J45.20 Mild intermittent asthma, uncomplicated; K27.9 Peptic ulcer, site unspecified, unspecified as acute or chronic, without hemorrhage or perforation; D50.9 Iron deficiency anemia, unspecified; Z79.84 Long term (current) use of oral hypoglycemic drugs; Z98.51 Tubal ligation status
CPT/HCPCS: 36415; 71045; 74176; 80048; 80053; 80061; 81003; 82607; 82728; 82746; 82962; 83036; 83540; 83550; 83880; 84484; 85025; 85044; 93005; 99285; C9113; J0696; J2405; J2765; J3490; J7030

== ENCOUNTER 2021-06-13 13:30 | Emergency (ER) | payer OTHER ==
[~2021-06-13] VITALS: Ht 157.5 cm; Wt 70.0 kg
[2021-06-13] MEDS ORDERED: VISCOUS LIDOCAINE 2% 15 ML UDC PO STA (16:43)
[2021-06-13] MEDS ORDERED: FAMOTIDINE 20MG/2ML VIAL IV STA (16:43)
[2021-06-13] MEDS ORDERED: MAGNESIUM/ALUMINUM HYDROXIDE/SIMETHICONE 30ML UDC PO STA (16:43)
[2021-06-13] MEDS ORDERED: METOCLOPRAMIDE HCL 10MG/2ML VIAL IV STA (16:43)
[2021-06-13] MEDS ORDERED: SODIUM CHLORIDE 0.9% 1,000 ML IV ONE (16:45)
[2021-06-13 17:28] LABS: BASOPHILS % 0.7 % (0.0-2.0); EOSINOPHILS % 0.5 % (0.0-5.0); HEMATOCRIT. 38.7 % (36.0-48.0); HEMOGLOBIN. 13.6 g/dL (12.0-16.0); LYMPHOCYTES % 24.2 % (20.0-50.0); MEAN CORPUSCULAR HEMOGLOBIN 27.4 pg (28.0-32.0); MEAN CORPUSCULAR VOLUME 77.7 fL (81.0-99.0); MEAN PLATELET VOLUME 8.8 fl (7.4-10.4); MONOCYTES % 7.9 % (2.0-8.0); NEUTROPHILS % 66.7 % (40.0-76.0); PLATELET 293 x1000/uL (130-400); RED BLOOD CELL COUNT 4.98 mill/uL (4.2-5.4)
[2021-06-13 17:33] LABS: CHLORIDE 105 mEq/L (98-107)
[2021-06-13] MEDS ORDERED: ONDA4TAB5 MT (21:58)
[2021-06-13 22:00] VITALS: BP 141/90
== END 2021-06-13 22:15 | disposition home or self-care (01) ==
LOC: ER 13:30
DX: R10.13 Epigastric pain (principal); K21.9 Gastro-esophageal reflux disease without esophagitis; E11.9 Type 2 diabetes mellitus without complications; I10 Essential (primary) hypertension; E78.00 Pure hypercholesterolemia, unspecified; Z98.51 Tubal ligation status
CPT/HCPCS: 36415; 76705; 80053; 83690; 84484; 85025; 93005; 96361; 96374; 96375; 99285; J2765; J3490; J7030

== ENCOUNTER 2021-06-18 12:05 | Inpatient (IN) | payer OTHER ==
[~2021-06-18] VITALS: Ht 157.5 cm; Wt 69.1 kg
[~2021-06-18 12:05] MED LIST changes: +ONDA4TAB5 MT
[2021-06-18] MEDS ORDERED: ONDANSETRON HCL 4MG/2ML INJ IV STA (13:24)
[2021-06-18] MEDS ORDERED: FAMOTIDINE 20MG/2ML VIAL IV ONE (13:30)
[2021-06-18] MEDS ORDERED: MAGNESIUM/ALUMINUM HYDROXIDE/SIMETHICONE 30ML UDC PO ONE (13:30)
[2021-06-18] MEDS ORDERED: SODIUM CHLORIDE 0.9% 1,000 ML IV ONE (13:30)
[2021-06-18 13:48] LABS: BASOPHILS % 0.7 % (0.0-2.0); EOSINOPHILS % 0.6 % (0.0-5.0); HEMATOCRIT. 37.6 % (36.0-48.0); HEMOGLOBIN. 13.1 g/dL (12.0-16.0); LYMPHOCYTES % 21.4 % (20.0-50.0); MEAN CORPUSCULAR HEMOGLOBIN 27.4 pg (28.0-32.0); MEAN PLATELET VOLUME 8.8 fl (7.4-10.4); MONOCYTES % 7.3 % (2.0-8.0); PLATELET 277 x1000/uL (130-400); RED BLOOD CELL COUNT 4.76 mill/uL (4.2-5.4)
[2021-06-18 13:57] LABS: CHLORIDE 109 mEq/L (98-107)
[2021-06-18 21:25] VITALS: BP 155/94
[2021-06-19] VITALS: BP 107/74
[2021-06-19] MEDS ORDERED: DEXTROSE 50% WATER 50ML SYRINGE IV PRN
[2021-06-19] MEDS ORDERED: ACETAMINOPHEN 325MG TABLET PO PRN
[2021-06-19] MEDS ORDERED: NALOXONE HCL 0.4 MG/ML 1ML VIAL IV PRN (00:30)
[2021-06-19] MEDS: HYDROCODONE/ACETAMINOPHEN 5/325MG TABLET PO PRN ×2 (00:33→06:29)
[2021-06-19] MEDS: BLOOD SUGAR DIAGNOSTIC STRIP TEST SCH ×4 (06:29→21:00)
[2021-06-19 06:32] LABS: BASOPHILS % 0.5 % (0.0-2.0); EOSINOPHILS % 0.7 % (0.0-5.0); HEMATOCRIT. 36.3 % (36.0-48.0); HEMOGLOBIN. 12.6 g/dL (12.0-16.0); LYMPHOCYTES % 28.6 % (20.0-50.0); MEAN CORPUSCULAR HEMOGLOBIN 27.2 pg (28.0-32.0); MEAN CORPUSCULAR VOLUME 78.3 fL (81.0-99.0); MEAN PLATELET VOLUME 9.1 fl (7.4-10.4); MONOCYTES % 10.5 % (2.0-8.0); NEUTROPHILS % 59.7 % (40.0-76.0); PLATELET 282 x1000/uL (130-400); RED BLOOD CELL COUNT 4.63 mill/uL (4.2-5.4); RED CELL DISTRIBUTION WIDTH 15.1 % (11.6-14.6)
[2021-06-19 06:38] LABS: CHLORIDE 111 mEq/L (98-107)
[2021-06-19 06:52] LABS: LDL CHOLESTEROL 59 mg/dL (5-100)
[2021-06-19 06:54] LABS: HDL CHOLESTEROL 56 mg/dL (40-59)
[2021-06-19] MEDS: INSULIN LISPRO 100 UNITS/ML SUBCUT SCH ×4 (07:55→21:00)
[2021-06-19 08:11] VITALS: BP 130/69
[2021-06-19 08:24] LABS: CREATINE KINASE 55 IU/L (26-192)
[2021-06-19] MEDS: PANTOPRAZOLE SODIUM 40 MG/VIAL IV SCH (09:35)
[2021-06-19] MEDS: ENOXAPARIN 40MG/0.4ML SYR SUBCUT SCH (09:36)
[2021-06-19 12:00] VITALS: BP 114/72
[2021-06-19] MEDS: ONDANSETRON HCL 4MG/2ML INJ IV PRN (14:22)
[2021-06-19 15:09] LABS: CLARITY URINE CLEAR (CLEAR); COLOR URINE YELLOW (YELLOW); KETONES URINE NEGATIVE (NEGATIVE); LEUKOCYTE ESTERASE URINE 1+ (NEGATIVE); NITRITE URINE NEGATIVE (NEGATIVE); OCCULT BLOOD URINE NEGATIVE (NEGATIVE); PROTEIN URINE NEGATIVE (NEGATIVE); UROBILINOGEN URINE 0.2 E.U./dL (0.2-1.0)
[2021-06-19 15:32] LABS: *AMPHETAMINES SCREEN URINE NEGATIVE (NEGATIVE); *BARBITURATES SCREEN URINE NEGATIVE (NEGATIVE); *BENZODIAZEPINES SCREEN URINE NEGATIVE (NEGATIVE); *COCAINE SCREEN URINE NEGATIVE (NEGATIVE); METHADONE URINE SCREEN NEGATIVE (NEGATIVE); OPIATES URINE SCREEN PRESUMTIVE POSITIVE (NEGATIVE); PHENCYCLIDINE URINE SCREEN NEGATIVE (NEGATIVE)
[2021-06-19 15:33] LABS: CANNABINOID URINE SCREEN NEGATIVE (NEGATIVE)
[2021-06-19 16:00] VITALS: BP 135/84
[2021-06-19 20:25] VITALS: BP 167/95
[2021-06-19] MEDS ORDERED: CLONIDINE 0.1MG TABLET PO PRN (22:00)
[2021-06-20 00:19] VITALS: BP 139/76
[2021-06-20 04:00] VITALS: BP 137/91
[2021-06-20] MEDS: INSULIN LISPRO 100 UNITS/ML SUBCUT SCH ×4 (06:17→21:00)
[2021-06-20] MEDS: BLOOD SUGAR DIAGNOSTIC STRIP TEST SCH ×4 (06:18→21:00)
[2021-06-20 07:54] LABS: BASOPHILS % 0.5 % (0.0-2.0); EOSINOPHILS % 0.6 % (0.0-5.0); HEMATOCRIT. 38.9 % (36.0-48.0); HEMOGLOBIN. 13.2 g/dL (12.0-16.0); LYMPHOCYTES % 23.7 % (20.0-50.0); MEAN CORPUSCULAR HEMOGLOBIN 26.9 pg (28.0-32.0); MEAN CORPUSCULAR VOLUME 78.9 fL (81.0-99.0); MONOCYTES % 9.7 % (2.0-8.0); NEUTROPHILS % 65.5 % (40.0-76.0); PLATELET 296 x1000/uL (130-400); RED BLOOD CELL COUNT 4.92 mill/uL (4.2-5.4)
[2021-06-20 08:00] VITALS: BP 114/74
[2021-06-20 08:01] LABS: INR 1.1; PROTHROMBIN TIME 11.4 sec (9.6-11.0)
[2021-06-20 08:16] LABS: CHLORIDE 109 mEq/L (98-107)
[2021-06-20] MEDS: ENOXAPARIN 40MG/0.4ML SYR SUBCUT SCH (09:00)
[2021-06-20] MEDS: PANTOPRAZOLE SODIUM 40 MG/VIAL IV SCH ×2 (09:00→21:58)
[2021-06-20] MEDS: BENAZEPRIL 10MG TABLET PO SCH ×2 (09:00→17:16)
[2021-06-20 12:00] VITALS: BP 131/77
[2021-06-20] MEDS: HYDROCODONE/ACETAMINOPHEN 5/325MG TABLET PO PRN (14:07)
[2021-06-20 16:00] VITALS: BP 117/78
[2021-06-20] MEDS: ONDANSETRON HCL 4MG/2ML INJ IV PRN (17:16)
[2021-06-20 20:00] VITALS: BP 116/66
[2021-06-21] VITALS: BP 111/67
[2021-06-21 04:00] VITALS: BP 116/78
[2021-06-21 05:18] LABS: CHLORIDE 107 mEq/L (98-107)
[2021-06-21 05:25] LABS: BASOPHILS % 0.6 % (0.0-2.0); EOSINOPHILS % 1.1 % (0.0-5.0); HEMATOCRIT. 37.3 % (36.0-48.0); LYMPHOCYTES % 18.9 % (20.0-50.0); MEAN CORPUSCULAR HEMOGLOBIN 27.5 pg (28.0-32.0); MEAN PLATELET VOLUME 8.8 fl (7.4-10.4); MONOCYTES % 11.7 % (2.0-8.0); NEUTROPHILS % 67.7 % (40.0-76.0); PLATELET 260 x1000/uL (130-400); RED BLOOD CELL COUNT 4.72 mill/uL (4.2-5.4)
[2021-06-21 05:36] LABS: INR 1.1; PROTHROMBIN TIME 11.4 sec (9.6-11.0)
[2021-06-21] MEDS: INSULIN LISPRO 100 UNITS/ML SUBCUT SCH ×4 (06:21→21:29)
[2021-06-21] MEDS: BLOOD SUGAR DIAGNOSTIC STRIP TEST SCH ×4 (06:21→21:28)
[2021-06-21 08:00] VITALS: BP 123/90
[2021-06-21] MEDS: BENAZEPRIL 10MG TABLET PO SCH ×2 (09:00→18:17)
[2021-06-21] MEDS: PANTOPRAZOLE SODIUM 40 MG/VIAL IV SCH ×2 (09:00→22:05)
[2021-06-21] MEDS ORDERED: FENTANYL CITRATE/PF 50MCG/ML 2ML VIAL IV PRN (12:20)
[2021-06-21] MEDS ORDERED: MIDAZOLAM HCL 2 MG/2 ML VIAL IV PRN (12:21)
[2021-06-21] MEDS ORDERED: MIDAZOLAM HCL 5 MG/5 ML VIAL ONE (12:30)
[2021-06-21] MEDS ORDERED: FENTANYL CITRATE/PF 50MCG/ML 2ML VIAL ONE (12:30)
[2021-06-21 16:00] VITALS: BP 129/85
[2021-06-21 20:00] VITALS: BP 116/75
[2021-06-22] VITALS: BP 101/64
[2021-06-22 04:00] VITALS: BP 114/74
[2021-06-22] MEDS: BLOOD SUGAR DIAGNOSTIC STRIP TEST SCH ×3 (06:40→16:40)
[2021-06-22] MEDS: INSULIN LISPRO 100 UNITS/ML SUBCUT SCH ×3 (07:10→17:10)
[2021-06-22 07:45] LABS: AMYLASE 63 IU/L (25-115)
[2021-06-22 08:00] VITALS: BP 117/74
[2021-06-22] MEDS: BENAZEPRIL 10MG TABLET PO SCH ×2 (09:00→17:44)
[2021-06-22] MEDS: PANTOPRAZOLE SODIUM 40 MG/VIAL IV SCH (09:38)
[2021-06-22] MEDS ORDERED: DIATR MEGLU/DIATRIZOATE SOLN 30ML PO NR (10:00)
[2021-06-22 12:00] VITALS: BP 128/84
[2021-06-22 16:01] VITALS: BP 130/87
[2021-06-22] MEDS ORDERED: LORA-249 MT (16:06)
[2021-06-22 16:56] VITALS: BP 130/87
[2021-06-22] MEDS ORDERED: SUCRALFATE 1G TABLET PO SCH (17:10)
[2021-06-22] MEDS ORDERED: ONDANSETRON HCL 4MG/2ML INJ IV SCH (18:00)
[2021-06-23] MEDS ORDERED: FAMOTIDINE 20MG/2ML VIAL IV SCH (09:00)
== END 2021-06-22 19:15 | disposition home or self-care (01) | DRG 392 ==
LOC: ER 12:05 → 6EST 14:33 → ENRESERV 20:01 → 6EST 21:32 → 7EST 06-19 10:40
PROVIDERS: ADMIT Internal Medicine; ATTEND Internal Medicine
PROC: 0DB98ZX Excision of Duodenum, Via Natural or Artificial Opening Endoscopic, Diagnostic (ICD-10-PCS; principal; 2021-06-21)
PROC: 0DB78ZX Excision of Stomach, Pylorus, Via Natural or Artificial Opening Endoscopic, Diagnostic (ICD-10-PCS; 2021-06-21)
DX: K29.70 Gastritis, unspecified, without bleeding (principal); I10 Essential (primary) hypertension; K21.9 Gastro-esophageal reflux disease without esophagitis; R19.7 Diarrhea, unspecified; G89.29 Other chronic pain; E78.5 Hyperlipidemia, unspecified; Z20.822 Contact with and (suspected) exposure to COVID-19; E11.9 Type 2 diabetes mellitus without complications; R63.4 Abnormal weight loss; Z68.27 Body mass index [BMI] 27.0-27.9, adult; Z82.49 Family history of ischemic heart disease and other diseases of the circulatory system; Z83.3 Family history of diabetes mellitus; Z98.51 Tubal ligation status; Z79.899 Other long term (current) drug therapy
CPT/HCPCS: 36415; 71045; 74177; 80048; 80053; 80061; 80305; 81003; 82150; 82550; 82962; 83036; 83880; 84484; 85025; 85379; 87426; 88305; 88312; 88313; 93005; 99285; C1893; C9113; J1650; J1815; J2250; J2405; J3010; J3490; J7030; Q9963

== ENCOUNTER 2024-08-20 06:59 | Emergency (ER) | payer OTHER ==
[~2024-08-20] VITALS: Ht 157.5 cm; Wt 65.2 kg
[~2024-08-20 06:59] MED LIST changes: -BENA40TA9 PO; +BENA40TA91 PO; +DICY-18 MT; -DICY10CA88 MT; -FAMO-135 MT; -FAMO-135 PO; +LORA-249 MT; -OMEP40CA20 MT
[2024-08-20 07:02] VITALS: O2SAT 99
[2024-08-20] MEDS: ACETAMINOPHEN 500MG TABLET PO ONE (07:50)
[2024-08-20] MEDS: KETOROLAC 30MG/ML VIAL IM ONE (07:50)
[2024-08-20] MEDS ORDERED: ACET-2708 PO (08:02)
[2024-08-20 08:12] VITALS: BP 157/87; PULSE 96; RESP 16; TEMP 36.7; O2SAT 99
== END 2024-08-20 08:15 | disposition home or self-care (01) ==
LOC: ER 06:59
DX: M54.9 Dorsalgia, unspecified (principal); M79.601 Pain in right arm; I10 Essential (primary) hypertension; E11.9 Type 2 diabetes mellitus without complications; Z79.899 Other long term (current) drug therapy; Z98.51 Tubal ligation status
CPT/HCPCS: 96372; 99283; J1885; Z7610